=== PATIENT | male | born 1955 | race Caucasian/White ===

== ENCOUNTER 2021-10-05 08:58 | Day surgery (SDC) | payer BC ==
[~2021-10-05 08:58] MED LIST: Lactated Ringers 1,000 ML IV SCH
[2021-10-05] MEDS ORDERED: fentaNYL 100 MCG/2 ML SDV ONE (11:13)
[2021-10-05] MEDS ORDERED: Propofol 200 MG/20 ML SDV ONE ×2 (11:13→11:31)
[2021-10-05] MEDS ORDERED: Midazolam 1 MG/ML 2 ML SDV ONE (11:13)
--- NOTE | 2021-10-05 11:49 | PCM.PREANE ---
Preanesthetic Assessment - Anesthesia/Transfusion/Family Hx Anesthesia History: Prior Anesthesia Without Reaction Family History of Anesthesia Reaction: No Transfusion History: No Prior Transfusion(s) - Review of Systems General: No Symptoms Pulmonary: No Symptoms Cardiovascular: No Symptoms Gastrointestinal: No Symptoms Neurological: No Symptoms Other: Reports: None - Physical Assessment NPO Status Date: 10/04/21 NPO Status Time: 00:00 Vital Signs: Last Vital Signs Temp 36.0 C L 10/05/21 09:31 Pulse 92 10/05/21 09:31 Resp 16 10/05/21 09:31 BP 123/78 10/05/21 09:31 Pulse Ox 93 L 10/05/21 09:31 Height: 1.75 m Weight: 74.843 kg ASA Class: 1 Mental Status: Alert & Oriented x3 Airway Class: Mallampati = 1 Dentition: Reports: Normal Dentition Thyro-Mental Finger Breadths: 3 Mouth Opening Finger Breadths: 3 ROM/Head Extension: Full Lungs: Clear to Auscultation, Normal Respiratory Effort Cardiovascular: Regular Rate, Regular Rhythm - Allergies Allergies/Adverse Reactions: Allergies Allergy/AdvReac Type Severity Reaction Status Date / Time No Known Allergies Allergy Verified 10/05/21 09:34 - Blood Blood Available: No - Anesthesia Plan Pre-Op Medication Ordered: None - Acknowledgements Anesthesia Type Planned: General Anesthesia Pt an Appropriate Candidate for the Planned Anesthesia: Yes Alternatives and Risks of Anesthesia Discussed w Pt/Guardian: Yes Pt/Guardian Understands and Agrees with Anesthesia Plan: Yes PreAnesthesia Questionnaire HEENT History: Reports: Other (See Below) Other HEENT History: uses reading glasses Cardiovascular History: Reports: None Respiratory History: Reports: None Gastrointestinal History: Reports: None Genitourinary History: Reports: None Musculoskeletal History: Reports: None Neurological History: Reports: None Psychiatric History: Reports: None Endocrine/Metabolic History: Reports: None Hematologic History: Reports: None Immunologic History: Reports: None Oncologic (Cancer) History: Reports: None Dermatologic History: Reports: None - Past Surgical History Head Surgeries/Procedures: Reports: None HEENT Surgical History: Reports: Oral Surgery Other HEENT Surgeries/Procedures: has 2 upper middle dental implants Cardiovascular Surgical History: Reports: None Respiratory Surgical History: Reports: None GI Surgical History: Reports: Hernia, Inguinal Male Surgical History: Reports: Vasectomy Endocrine Surgical History: Reports: None Neurological Surgical History: Reports: None Musculoskeletal Surgical History: Reports: None - SUBSTANCE USE Tobacco Use Status *Q: Never Tobacco User Recreational Drug Use History: No - HOME MEDS Home Medications: Home Meds Sildenafil Citrate 20 mg PO TID 10/01/21 [History] Testosterone Cypionate [Depo-Testosterone] 100 mg IM WEEKLY 10/01/21 [History] - CURRENT (IN HOUSE) MEDS Current Meds: Current Medications Lactated Ringer's (Ringers, Lactated) 1,000 mls @ 125 mls/hr [facility] Last Admin: 10/05/21 09:32 Dose: 125 mls/hr Documented by: Discontinued Medications Fentanyl (Fentanyl 100 Mcg/2 Ml Sdv) Confirm Administered Dose 100 mcg .ROUTE .STK-MED ONE Stop: 10/05/21 11:14 Midazolam HCl (Midazolam 1 Mg/Ml 2 Ml Sdv) Confirm Administered Dose 6 mg .ROUTE .STK-MED ONE Stop: 10/05/21 11:14 Propofol (Propofol 200 Mg/20 Ml Sdv) Confirm Administered Dose 800 mg .ROUTE .STK-MED ONE Stop: 10/05/21 11:14 Propofol (Propofol 200 Mg/20 Ml Sdv) Confirm Administered Dose 200 mg .ROUTE .STK-MED ONE Stop: 10/05/21 11:32
--- NOTE | 2021-10-05 11:49 | PCM.POSTAN ---
POST ANESTHESIA ASSESSMENT - MENTAL STATUS Mental Status: Alert, Oriented - VITAL SIGNS Vital Signs: Last Vital Signs Temp 36.0 C L 10/05/21 09:31 Pulse 92 10/05/21 09:31 Resp 16 10/05/21 09:31 BP 123/78 10/05/21 09:31 Pulse Ox 93 L 10/05/21 09:31 - RESPIRATORY Respiratory Status: Respiratory Rate WNL, Airway Patent, O2 Saturation Stable - CARDIOVASCULAR CV Status: Pulse Rate WNL, Blood Pressure Stable - GASTROINTESTINAL GI Status: No Symptoms - POST OP HYDRATION Hydration Status: Adequate & Stable
--- NOTE | 2021-10-05 11:49 | PCM48HPAN ---
Post Anesthesia Note - EVALUATION WITHIN 48HRS OF ANESTHETIC Patient Participated in Evaluation: Yes Respiratory Function Stable: Yes Airway Patent: Yes Cardiovascular Function Stable: Yes Hydration Status Stable: Yes Pain Control Satisfactory: Yes Nausea and Vomiting Control Satisfactory: Yes Mental Status Recovered: Yes Vital Signs: Last Vital Signs Temp 36.0 C L 10/05/21 09:31 Pulse 92 10/05/21 09:31 Resp 16 10/05/21 09:31 BP 123/78 10/05/21 09:31 Pulse Ox 93 L 10/05/21 09:31
--- NOTE | 2021-10-05 11:51 | PCM.OPNOTE ---
- General Post-Op/Procedure Note Date of Surgery/Procedure: 10/05/21 Operative Procedure(s): Colonoscopy Pre Op Diagnosis: Desire for colorectal cancer screening Post-Op Diagnosis: No evidence of neoplasia Anesthesia Technique: MAC (ASA I) Primary Surgeon: Davon Jensen Condition: Good Free Text/Narrative:: DICTATION [id number] CPT CODE 18525
[2021-10-05] MEDS ORDERED: Lactated Ringers 1,000 ML IV SCH (12:00)
--- NOTE | 2021-10-05 12:26 | OR ---
SURGEON: Davon Jensen M.D. DATE OF PROCEDURE: 10/05/2021 OPERATION PERFORMED: Colonoscopy. PRIMARY SURGEON: Davon Jensen MD ANESTHESIA: MAC. ASA CLASSIFICATION: I. PREOPERATIVE DIAGNOSIS: Desire for colorectal cancer screening. POSTOPERATIVE DIAGNOSIS: No evidence of neoplasia. DESCRIPTION OF PROCEDURE: The patient was taken to the endoscopy room, positioned on the endoscopy table in the left lateral decubitus position. Time-out was called for appropriate identification of the patient and procedure. Monitored anesthesia care was provided. The colonoscope was inserted into the rectum and advanced with minimal difficulty to the cecum. The cecum was identified by internal landmarks and external pressure. The colonoscope was retroflexed to visualize the ascending colon from below, then straightened and slowly withdrawn. Cecum, ascending colon, hepatic flexure, transverse colon, splenic flexure, descending colon, sigmoid colon, and rectum were very well visualized. No tumors, polyps, diverticula, or angiodysplastic changes were noted anywhere in the lower gastrointestinal tract. Once the colonoscope was withdrawn to the rectum, attempt was made to retroflex the scope. Despite multiple maneuvers, I was not able to retroflex the colonoscope. No acute hemorrhoidal changes were noted. The colonoscope was then straightened again, the rectum aspirated, and the scope removed. The patient tolerated the procedure well and was taken to recovery room in stable condition. PHUC / GLORY /[id number]
[2021-10-05 12:46] VITALS: BP 112/78; PULSE 92
== END 2021-10-05 12:30 | disposition home or self-care (01) ==
LOC: MW.SDS 08:58
PROVIDERS: ATTEND Surgery
DX: Z12.11 Encounter for screening for malignant neoplasm of colon (principal); N52.9 Male erectile dysfunction, unspecified; Z79.899 Other long term (current) drug therapy; Z98.890 Other specified postprocedural states
CPT/HCPCS: 45378; J2250; J2704; J7120; 00812; J3010

== ENCOUNTER 2022-06-30 10:10 | Emergency (ER) | payer BC ==
[2022-06-30 11:31] VITALS: BP 124/59; PULSE 68
== END 2022-06-30 11:31 | disposition home or self-care (01) ==
LOC: MW.ED 10:10
DX: U07.1 COVID-19 (principal)
CPT/HCPCS: 71045; 71045-26; 99282; 99283; U0002

== ENCOUNTER 2023-05-17 10:48 | Emergency (ER) | payer BC ==
[2023-05-17] MEDS ORDERED: Diphtheria,Pertussis(Acell),Tetanus Vaccine 0.5 ML Syringe IM ONE (11:21)
[2023-05-17] MEDS ORDERED: Lidocaine 1% 5 ML VIAL INJECT ONE (11:21)
[2023-05-17] MEDS ORDERED: Octyl 2-Cyanoacrylate 0.5 g/0.5 mL 1 APPLIC TUBE TOP ONE (11:36)
[2023-05-17] MEDS ORDERED: Octyl 2-Cyanoacrylate 1 g/1 mL 1 APPLIC PEN TOP ONE (11:36)
[2023-05-17] MEDS ORDERED: ceFAZolin 1 GM Vial IM ONE (11:39)
[2023-05-17 13:32] VITALS: BP 126/80; PULSE 72
== END 2023-05-17 13:32 | disposition home or self-care (01) ==
LOC: MW.ED 10:48
DX: S62.521A Displaced fracture of distal phalanx of right thumb, initial encounter for closed fracture (principal); Z23 Encounter for immunization; W23.0XXA Caught, crushed, jammed, or pinched between moving objects, initial encounter
CPT/HCPCS: 11760; 73120; 73130; 90471; 90715; 96372; 99283; A9270; J0690; J3490